=== PATIENT | male | born 1940 | race Caucasian/White ===

== ENCOUNTER 2023-02-24 21:09 | Emergency (ER) | payer OTHER ==
[~2023-02-24] VITALS: Ht 167.6 cm; Wt 72.7 kg
[~2023-02-24 21:09] MED LIST: ACET-1953 PO; FERR325T27 PO; MECL-160 PO; PANT-31 PO; TRAM-559 PO; [UNRECOGNIZED DRUG - CODE] PO
[2023-02-24 22:54] LABS: COVID AG,FIA SOURCE NASOPHARYNGEAL
[2023-02-24 23:00] VITALS: TEMP 98.3
[2023-02-24 23:20] LABS: INFLUENZA TYPE A NEGATIVE FOR TYPE A (NEGATIVE); INFLUENZA TYPE B NEGATIVE FOR TYPE B (NEGATIVE)
[2023-02-24 23:30] VITALS: BP 135/81; PULSE 81; RESP 16
[2023-02-24] MEDS ORDERED: BENZONATATE 100 MG CAPSULE PO ONE (23:30)
[2023-02-24] MEDS ORDERED: BENZ-227 PO (23:36)
== END 2023-02-25 | disposition home or self-care (01) ==
LOC: EMS 21:11
DX: R05.9 Cough, unspecified (principal); I25.10 Atherosclerotic heart disease of native coronary artery without angina pectoris; I10 Essential (primary) hypertension; E78.00 Pure hypercholesterolemia, unspecified; Z98.890 Other specified postprocedural states; Z20.822 Contact with and (suspected) exposure to COVID-19
CPT/HCPCS: 71046; 87804; 99284